=== PATIENT | male | born 1960 | race Caucasian/White ===

== ENCOUNTER 2017-03-02 14:51 | Emergency (ER) | payer SELFPAY ==
[~2017-03-02] VITALS: Ht 175.3 cm; Wt 65.0 kg
[2017-03-02 15:07] VITALS: BP 141/99; PULSE 90; RESP 16; TEMP 98; O2SAT 98
[2017-03-02 16:27] LABS: AUTOMATED NEUTROPHIL # 8.5 TH/MM3 (1.8-7.7); BASOPHIL % 0.1 % (0.0-2.0); EOSINOPHIL # 0.2 TH/MM3 (0-0.4); EOSINOPHIL % 1.4 % (0.0-4.0); HEMATOCRIT 43.8 % (39.0-51.0); HEMO FLAGS DIFF FINAL; LYMPH % 14.7 % (9.0-44.0); LYMPHOCYTE # 1.6 TH/MM3 (1.0-4.8); MEAN CELL VOLUME 88.7 FL (80.0-100.0); MEAN CORPUSCULAR HEMOGLOBIN 29.8 PG (27.0-34.0); MEAN CORPUSCULAR HGB CONC 33.6 % (32.0-36.0); MONO % 7.2 % (0.0-8.0); NEUT % 76.6 % (16.0-70.0); PLATELET COUNT 198 TH/MM3 (150-450); RED BLOOD COUNT 4.93 MIL/MM3 (4.50-5.90); RED CELL DISTRIBUTION WIDTH 13.6 % (11.6-17.2); WHITE BLOOD COUNT 11.2 TH/MM3 (4.0-11.0)
[2017-03-02 16:33] LABS: AMPHETAMINE, URINE NEG (NEG); BARBITURATES, URINE NEG (NEG); COCAINE, URINE NEG (NEG)
[2017-03-02 16:55] LABS: ALT (GPT) 30 U/L (12-78); ANION GAP 7 MEQ/L (5-15); AST (GOT) 49 U/L (15-37); BICARBONATE 26.1 MEQ/L (21.0-32.0); CHLORIDE 103 MEQ/L (98-107); GLOMERULAR FILTRATION RATE 72 ML/MIN (>89); POTASSIUM 3.8 MEQ/L (3.5-5.1); SODIUM (NA) 136 MEQ/L (136-145)
[2017-03-02 17:01] LABS: ALKALINE PHOSPHATASE 103 U/L (45-117); BLOOD UREA NITROGEN 18 MG/DL (7-18); TOTAL BILIRUBIN ADULT 0.4 MG/DL (0.2-1.0)
[2017-03-02 18:21] VITALS: BP 149/89; PULSE 78; RESP 18; O2SAT 99
[2017-03-02] MEDS ORDERED: LEVA750T9 (18:26)
[2017-03-02] MEDS ORDERED: CLIN1CAP6 PO (18:26)
[2017-03-02] MEDS ORDERED: PERC5TAB12 PO (18:26)
[2017-03-02] MEDS ORDERED: REME15TA PO (18:26)
[2017-03-02] MEDS ORDERED: PROT40TA PO (18:26)
--- NOTE | 2017-03-02 18:38 | PD ---
HPI Chief Complaint: Psychiatric Symptoms Time Seen by Provider: 18:33 Travel History International Travel<30 days: No Contact w/Intl Traveler<30days: No Traveled to known affect area: No History of Present Illness HPI 56-year-old male that presents to the ED for evaluation of psychiatric illness. Patient states that he is being Narvaez acted before. He does suffer from depression and suicidal ideation. Patient was Narvaez acted secondary to wanting to hurt himself. Patient apparently just found out that he has pneumonia and cancer and he had a port placed on his right chest to start chemotherapy radiation soon. Patient doesn't know what Cancer he hasn't he for the most part is a poor historian. The patient his very much takes care of him 100% . Patient is disabled secondary to injuries to his back. He currently takes opiates. He denies any new injuries or falls. No chest pain or shortness of breath. He states that he feels depressed secondary to the new finding of cancer and all his medical comorbidities. PFSH Social History Alcohol Use: No Tobacco Use: Yes Substance Use: No Allergies-Medications (Allergen,Severity, Reaction): Coded Allergies: No Known Allergies (Unverified , 03/02/17) Reported Meds & Prescriptions Reported Meds & Active Scripts Active Reported Clindamycin (Clindamycin HCl) 300 Mg Cap 300 Mg PO TID Levaquin (Levofloxacin) 750 Mg Tablet Remeron (Mirtazapine) 15 Mg Tab 15 Mg PO HS Percocet (Oxycodone-Acetaminophen) 5-325 mg Tab 1 Tab PO Q4H PRN Protonix (Pantoprazole Sodium) 40 Mg Tab 40 Mg PO DAILY Review of Systems ROS Limitations: Poor Historian Except as stated in HPI: all other systems reviewed are Neg Physical Exam Exam Limitations: Poor Historian Narrative GENERAL: SKIN: Warm and dry. HEAD: Atraumatic. Normocephalic. EYES: Pupils equal and round. No scleral icterus. No injection or drainage. ENT: No nasal bleeding or discharge. Mucous membranes pink and moist. Tongue is midline. No uvula deviation. NECK: Trachea midline. No JVD. CARDIOVASCULAR: Regular rate and rhythm. No murmurs, S3, S4. RESPIRATORY: No accessory muscle use. Clear to auscultation. Breath sounds equal bilaterally. GASTROINTESTINAL: Abdomen soft, non-tender, nondistended. Hepatic and splenic margins not palpable. MUSCULOSKELETAL: Extremities without clubbing, cyanosis, or edema. No obvious deformities. Full range of motion of the upper and lower extremities bilaterally. 2+ pulses bilaterally. NEUROLOGICAL: Awake and alert. No obvious cranial nerve deficits. Motor grossly within normal limits. Five out of 5 muscle strength in the arms and legs. Normal speech. PSYCHIATRIC: Appropriate mood and affect; insight and judgment normal. Data Data Last Documented VS Vital Signs Date Time Temp Pulse Resp B/P Pulse Ox O2 Delivery O2 Flow Rate FiO2 03/02/17 18:21 78 18 149/89 99 Room Air 03/02/17 15:07 98.0 Orders Complete Blood Count With Diff (03/02/17 15:27) Comprehensive Metabolic Panel (03/02/17 15:27) Psych Screen (03/02/17 15:27) Drug Screen, Random Urine (03/02/17 15:27) Labs Laboratory Tests Test 03/02/17 03/02/17 15:17 15:18 White Blood Count 11.2 TH/MM3 Red Blood Count 4.93 MIL/MM3 Hemoglobin 14.7 GM/DL Hematocrit 43.8 % Mean Corpuscular Volume 88.7 FL Mean Corpuscular Hemoglobin 29.8 PG Mean Corpuscular Hemoglobin 33.6 % Concent Red Cell Distribution Width 13.6 % Platelet Count 198 TH/MM3 Mean Platelet Volume 7.2 FL Neutrophils (%) (Auto) 76.6 % Lymphocytes (%) (Auto) 14.7 % Monocytes (%) (Auto) 7.2 % Eosinophils (%) (Auto) 1.4 % Basophils (%) (Auto) 0.1 % Neutrophils # (Auto) 8.5 TH/MM3 Lymphocytes # (Auto) 1.6 TH/MM3 Monocytes # (Auto) 0.8 TH/MM3 Eosinophils # (Auto) 0.2 TH/MM3 Basophils # (Auto) 0.0 TH/MM3 CBC Comment DIFF FINAL Differential Comment Sodium Level 136 MEQ/L Potassium Level 3.8 MEQ/L Chloride Level 103 MEQ/L Carbon Dioxide Level 26.1 MEQ/L Anion Gap 7 MEQ/L Blood Urea Nitrogen 18 MG/DL Creatinine 1.07 MG/DL Estimat Glomerular Filtration 72 ML/MIN Rate Random Glucose 114 MG/DL Calcium Level 8.9 MG/DL Total Bilirubin 0.4 MG/DL Aspartate Amino Transf 49 U/L (AST/SGOT) Alanine Aminotransferase 30 U/L (ALT/SGPT) Alkaline Phosphatase 103 U/L Total Protein 7.7 GM/DL Albumin 3.1 GM/DL Urine Opiates Screen NEG Urine Barbiturates Screen NEG Urine Amphetamines Screen NEG Urine Benzodiazepines Screen NEG Urine Cocaine Screen NEG Urine Cannabinoids Screen NEG MDM Medical Decision Making Medical Screen Exam Complete: Yes Emergency Medical Condition: Yes Medical Record Reviewed: Yes Interpretation(s) CBC & BMP Diagram 03/02/17 15:17 LFts WNL tox negative Differential Diagnosis Depression versus suicidal ideation versus anxiety versus adjustment disorder versus mood disorder versus bipolar disorder versus schizophrenia versus paranoid disorder versus psychosis versus substance abuse versus alcohol abuse versus alcohol induced psychosis versus homicidality addition versus cutting versus personality disorder Narrative Course 56-year-old male that presents to the ED for evaluation of psychiatric illness. No sign of acute medical distress. Patient was properly examined and was found to have signs and symptoms consistent with psychiatric illness. Patient is depressed secondary to newly diagnosed cancer and inability to take care of self. No other sign of acute disease at this time. Patient every taking Levaquin and clindamycin. Patient is a poor historian so history is limited. At this time patient will be allowed to continue his Levaquin and clindamycin and I did order his dose for tonight. Patient will be medically clear. Okay to be seen by psych. I did ask ED psych nurse to see if they can get records from the [facility] to better assess medical conditions patient has. Mental health screening was discussed with the patient. Diagnosis Primary Impression: Depression Qualified Code: F33.1 - Moderate episode of recurrent major depressive disorder Darius Ricci Mar 02, 2017 18:38
[2017-03-02] MEDS ORDERED: LEVOFLOXACIN 750 MG TAB PO ONE (18:45)
[2017-03-02] MEDS ORDERED: CLINDAMYCIN 150 MG CAP PO ONE (18:45)
[2017-03-02] MEDS ORDERED: OXYC1TAB63 PO (18:51)
[2017-03-02 22:12] VITALS: BP 120/61; PULSE 71; RESP 18; TEMP 98.2; O2SAT 97
[2017-03-03 02:03] VITALS: BP 108/64; PULSE 75; RESP 16; O2SAT 97
[2017-03-03 06:07] VITALS: BP 117/66; PULSE 73; RESP 16; TEMP 99.5; O2SAT 96
[2017-03-03] MEDS ORDERED: LEVOFLOXACIN 750 MG TAB PO SCH (09:00)
--- NOTE | 2017-03-03 09:38 | PD ---
History of Present Illness Chief Complaint: Psychiatric Symptoms Time Seen by Provider: 09:22 Travel History International Travel<30 Days: No Contact w/Intl Traveler<30days: No Known affected area: No Legal Status Legal Status: Narvaez Act Narvaez Act Signed By: JACQUELINE LU Narvaez Act Comment: 03/02/2017 1207 PM History of Present Illness: History of Present Illness HPI 56-year-old male with no reported psychiatric history that presents to the ED under a Narvaez Act initiated by police department. The report alleges that the patient asked his to call 911 before he would hurt her or hurt himself. he did not make any attempt at harming her or himself. The patient states that he has been x 1 and half years and that the relationship is " shant". He goes on to say that they argue frequently and " she controls me. I don't even have acces to my wallet". He also reports stress involving recently diagnosed cancer and upcoming treatment. EMR is reviewed. [place] contact with [facility] . Negative toxicology. Patient is seen with nurse Mireya. he is alert, oriented. Speech is clear and logical. He denies any hallucinatory process. No kiran or hypomania. Denies suicidal ideation, denies homicidal ideation. States " I'm not going to harm her. I love her too much". I don't want to give up". He denies feeling depressed stating " I'm happy as long as she leaves me alone". He denies any substance use. In terms of psychiatric hx he denies current treatment and only has seen a psychiatrist once in the past. Psychiatric History Psychiatric History Hx Psychiatric Treatment: He states previous history of Narvaez Acts. History of Inpatient Treatment: No Guns or firearms in home: No Social History . Lives with . On disability due to back injury Hx Alcohol Use: No Hx Tobacco Use: Yes Hx Substance Use: No Substance Use Type: Nicotine/Cigarettes Hx of Substance Use Treatment: No Family Psychiatric History Negative Allergies-Medications (Allergen,Severity, Reaction): Coded Allergies: No Known Allergies (Unverified , 03/02/17) Reported Meds & Prescriptions Reported Meds & Active Scripts Active Reported Oxycodone-Acetaminophen 5-325 mg Tab 1 Tab PO Q6H PRN Clindamycin (Clindamycin HCl) 300 Mg Cap 300 Mg PO TID Levaquin (Levofloxacin) 750 Mg Tablet Remeron (Mirtazapine) 15 Mg Tab 15 Mg PO HS Protonix (Pantoprazole Sodium) 40 Mg Tab 40 Mg PO DAILY Review of Systems Except as stated in HPI: all other systems reviewed are Neg Respiratory: COMPLAINS OF: Shortness of breath Musculoskeletal: COMPLAINS OF: Back pain Exam Alert: Yes [place]: Person (ox4) Mood: Calm Affect: Appropriate Speech: Clear, Logical Eye Contact: Normal Memory Intact: Comment (No impairmetn) Hallucinations: Other (Negative) Delusions: No Suicidal: Ideation (Denies any) Homicidal: Ideation (Deneis any) Insight/Judgement Fair. Not impaired MDM Medical Decision Making Medical Record Reviewed: Yes Assessment/Plan 56-year-old male with no reported psychiatric history that presents to the ED under a Narvaez Act initiated by police department. The report alleges that the patient asked his to call 911 before he would hurt her or hurt himself. Patient was monitored in secure environment with no behavioral concerns and no suicidality. He has requested discharge and does not meet criteria at this time. he is provided psychoeducation. Recommend outpatient counseling which he is willing to do. Contracts for safety. Advised to return to ED if any changes. . Lift BA and discharge Lift BA. Cleared for discharge Orders Complete Blood Count With Diff (03/02/17 15:27) Comprehensive Metabolic Panel (03/02/17 15:27) Psych Screen (03/02/17 15:27) Drug Screen, Random Urine (03/02/17 15:27) Levofloxacin (Levaquin) (03/02/17 18:45) Clindamycin (Cleocin) (03/02/17 18:45) Levofloxacin (Levaquin) (03/03/17 09:00) Diet Regular Basic (03/03/17 Breakfast) Results Vital Signs Date Time Temp Pulse Resp B/P Pulse Ox O2 Delivery O2 Flow Rate FiO2 03/03/17 06:07 99.5 73 16 117/66 96 Room Air 03/03/17 02:03 75 16 108/64 97 Room Air 03/02/17 22:12 98.2 71 18 120/61 97 Room Air 03/02/17 18:21 78 18 149/89 99 Room Air 03/02/17 15:07 98.0 90 16 141/99 98 Laboratory Tests Test 03/02/17 03/02/17 15:17 15:18 White Blood Count 11.2 Red Blood Count 4.93 Hemoglobin 14.7 Hematocrit 43.8 Mean Corpuscular Volume 88.7 Mean Corpuscular Hemoglobin 29.8 Mean Corpuscular Hemoglobin 33.6 Concent Red Cell Distribution Width 13.6 Platelet Count 198 Mean Platelet Volume 7.2 Neutrophils (%) (Auto) 76.6 Lymphocytes (%) (Auto) 14.7 Monocytes (%) (Auto) 7.2 Eosinophils (%) (Auto) 1.4 Basophils (%) (Auto) 0.1 Neutrophils # (Auto) 8.5 Lymphocytes # (Auto) 1.6 Monocytes # (Auto) 0.8 Eosinophils # (Auto) 0.2 Basophils # (Auto) 0.0 CBC Comment DIFF FINAL Differential Comment Sodium Level 136 Potassium Level 3.8 Chloride Level 103 Carbon Dioxide Level 26.1 Anion Gap 7 Blood Urea Nitrogen 18 Creatinine 1.07 Estimat Glomerular Filtration 72 Rate Random Glucose 114 Calcium Level 8.9 Total Bilirubin 0.4 Aspartate Amino Transf 49 (AST/SGOT) Alanine Aminotransferase 30 (ALT/SGPT) Alkaline Phosphatase 103 Total Protein 7.7 Albumin 3.1 Urine Opiates Screen NEG Urine Barbiturates Screen NEG Urine Amphetamines Screen NEG Urine Benzodiazepines Screen NEG Urine Cocaine Screen NEG Urine Cannabinoids Screen NEG Diagnosis Primary Impression: Adjustment disorder Ruled Out: Depression Psychiatrically Cleared: Yes Med/ Other Pt Specific Info: No Change to Meds Disposition: 01 DISCHARGE HOME Condition: Stable Problem Qualifiers Primary Impression: Adjustment disorder Qualified Code: F43.25 - Adjustment disorder with mixed disturbance of emotions and conduct Imani Farley Mar 03, 2017 09:38
[2017-03-03 10:34] VITALS: BP 117/66; TEMP 98
== END 2017-03-03 10:20 | disposition home or self-care (01) ==
LOC: NEDAMB 14:51 → NEPJ 03-03 10:20
DX: F33.1 Major depressive disorder, recurrent, moderate (principal); F43.25 Adjustment disorder with mixed disturbance of emotions and conduct; F17.210 Nicotine dependence, cigarettes, uncomplicated; C80.1 Malignant (primary) neoplasm, unspecified
CPT/HCPCS: 80053; 80307; 85025; 99284